=== PATIENT | female | born 1935 | race Caucasian/White ===

== ENCOUNTER 2017-02-17 15:15 | Emergency (ER) | payer OTHER ==
[~2017-02-17] VITALS: Ht 144.8 cm; Wt 63.6 kg
[~2017-02-17 15:15] MED LIST: AMLODIPINE PO; ASPIR-LOW81 MG PO; BENAZEPRIL HCL20 MG PO; CELEXA20 MG PO; CIPRO500 MG PO; CITALOPRAM HBR20 MG PO; COZAAR100 MG PO; DIABETA5 MG PO; GLIMEPIRIDE4 MG PO; IRON325 MG PO; JANUVIA100 MG PO; Januvia PO; LEVOTHROID25 MCG PO; LEVOTHYROXINE25 MCG PO; LO-DOSE ASPIRIN81 M1 PO; LOTENSIN20 MG PO; Norvasc PO; PERCOCET 5/31 TABLET PO; PRAVACHOL80 MG PO; PRAVASTATIN SOD80 MG PO; SEE COMMENT; SLOW RELEASE I160 MG PO; Trusopt 2% Ophth Sol BOTH EYES; VITAMIN D22000 UNIT PO; VITAMIN D5000 UNIT PO; Vitamin D PO; WELLBUTRIN SR100 MG PO; WELLBUTRIN100 MG PO; Wellbutrin SR PO; ZOFRAN4 MG PO
[2017-02-17 15:38] LABS: POINT-OF-CARE METER ID UU13113778
[2017-02-17 16:55] LABS: ADD MIUA? NO; BILIRUBIN NEGATIVE; BLOOD NEGATIVE; COLOR STRAW ((YELLOW)); GLUCOSE (STRIP) NEGATIVE; KETONES NEGATIVE; LEUKOCYTES NEGATIVE; NITRITE NEGATIVE; PROTEIN (STRIP) NEGATIVE; SPECIFIC GRAVITY 1.005 (1.000-1.030); UCUL ADDED? NO; UROBILINOGEN 0.2 MG/DL (0.2-1.0)
[2017-02-17 16:59] LABS: EOSINOPHIL (%) 1.4 % (0-5); EOSINOPHIL COUNT 0.1 K/uL (0-0.3); HEMATOCRIT 36.8 % (36.0-46.0); IMMATURE GRANULOCYTE (%) 0.8 % (0.0-0.7); IMMATURE GRANULOCYTE COUNT 0.1 K/uL; INSTRUMENT ABS NEUTROPHIL CT 6.5 K/uL; LYMPHOCYTE COUNT 1.7 K/uL (1.0-2.8); MCH 30.2 PG (29.0-34.0); MCHC 32.6 G/DL (30.0-36.0); MCV 92.5 FL (83-99); MEAN PLAT.VOLUME 9.5 uM^3 (9.5-12.4); MONOCYTE (%) 7.7 % (3-12); MONOCYTE COUNT 0.7 K/uL (0-0.8); NEUTROPHIL (%) 71.4 % (45-76); NEUTROPHIL COUNT 6.5 K/uL (1.8-6.4); PLATELET COUNT 186 K/uL (156-360); RBC DIS.WIDTH-CV 13.1 % (11.8-14.6); RBC DIS.WIDTH-SD 44.3 % (39-53); RED BLOOD COUNT 3.98 M/uL (3.80-5.20); WHITE BLOOD COUNT 9.1 K/uL (4.1-10.2)
[2017-02-17 17:07] LABS: PROTHROMBIN TIME 10.7 SEC (10.2-12.9)
[2017-02-17 17:09] LABS: CHLORIDE 101 mEq/L (99-109); POTASSIUM 4.4 mEq/L (3.7-5.4); SODIUM 135 mEq/L (136-147)
[2017-02-17 17:10] LABS: PTT 24.4 SEC (25-37)
[2017-02-17 17:12] LABS: GLUCOSE 181 mg/dL (70-99)
[2017-02-17 17:13] LABS: ANION GAP 9 MEQ/L (2-14); TOTAL BILIRUBIN 0.6 mg/dL (0.0-1.0)
[2017-02-17 17:15] LABS: ALKALINE PHOSPHATASE 56 IU/L (3-129); GFR ESTIMATE (CALCULATED) 46 mL/min/
[2017-02-17 17:16] LABS: UREA NITROGEN (BUN) 15 mg/dL (9-23)
[2017-02-17 17:19] LABS: LIPASE 51 U/L (1.0-51.0)
[2017-02-17 17:21] LABS: TROP-I INTERPRETATION NEGATIVE; TROPONIN-I 0.03 ng/mL (0.0-0.30)
[2017-02-17 18:37] VITALS: BP 165/80
== END 2017-02-17 18:39 | disposition home or self-care (01) ==
LOC: EME 15:15
PROVIDERS: Emergency Medicine
DX: I10 Essential (primary) hypertension (principal); R26.2 Difficulty in walking, not elsewhere classified; F03.90 Unspecified dementia, unspecified severity, without behavioral disturbance, psychotic disturbance, mood disturbance, and anxiety; R42 Dizziness and giddiness; M79.604 Pain in right leg; M79.605 Pain in left leg; E11.9 Type 2 diabetes mellitus without complications; Z79.84 Long term (current) use of oral hypoglycemic drugs; Z79.82 Long term (current) use of aspirin; E78.5 Hyperlipidemia, unspecified
CPT/HCPCS: 70450; 71020; 80053; 81003; 82948; 83605; 83690; 84484; 85025; 85610; 85730; 99281; 99284

== ENCOUNTER 2017-07-05 10:15 | Observation (INO) | payer OTHER ==
[~2017-07-05] VITALS: Ht 144.8 cm; Wt 65.1 kg
[~2017-07-05 10:15] MED LIST changes: +PRAVASTATIN SOD40 MG PO; -PRAVASTATIN SOD80 MG PO
[2017-07-05 11:20] LABS: EOSINOPHIL (%) 0.4 % (0-5); HEMATOCRIT 36.3 % (36.0-46.0); IMMATURE GRANULOCYTE (%) 0.3 % (0.0-0.7); INSTRUMENT ABS NEUTROPHIL CT 7.4 K/uL; LYMPHOCYTE COUNT 1.3 K/uL (1.0-2.8); MCH 30.1 PG (29.0-34.0); MCHC 33.6 G/DL (30.0-36.0); MCV 89.6 FL (83-99); MEAN PLAT.VOLUME 9.3 uM^3 (9.5-12.4); MONOCYTE (%) 7.3 % (3-12); MONOCYTE COUNT 0.7 K/uL (0-0.8); NEUTROPHIL (%) 78.2 % (45-76); NEUTROPHIL COUNT 7.4 K/uL (1.8-6.4); PLATELET COUNT 188 K/uL (156-360); RBC DIS.WIDTH-CV 12.6 % (11.8-14.6); RBC DIS.WIDTH-SD 41.8 % (39-53); RED BLOOD COUNT 4.05 M/uL (3.80-5.20); WHITE BLOOD COUNT 9.5 K/uL (4.1-10.2)
[2017-07-05 11:29] LABS: PROTHROMBIN TIME 11.6 SEC (10.2-12.9)
[2017-07-05 11:39] LABS: CHLORIDE 95 mEq/L (99-109); POTASSIUM 4.7 mEq/L (3.7-5.4); SODIUM 126 mEq/L (136-147)
[2017-07-05 11:40] LABS: TROP-I INTERPRETATION NEGATIVE; TROPONIN-I < 0.01 ng/mL (0.0-0.30)
[2017-07-05 11:41] LABS: GLUCOSE 293 mg/dL (70-99)
[2017-07-05 11:42] LABS: ANION GAP 9 MEQ/L (2-14)
[2017-07-05 11:45] LABS: GFR ESTIMATE (CALCULATED) 46 mL/min/
[2017-07-05 11:46] LABS: UREA NITROGEN (BUN) 27 mg/dL (9-23)
[2017-07-05] MEDS ORDERED: GLIMEPIRIDE2 MG PO (13:48)
[2017-07-05] MEDS ORDERED: VITAMIN K100 MCG PO (13:49)
[2017-07-05] MEDS ORDERED: MEMANTINE HCL10 MG PO (13:49)
[2017-07-05] MEDS ORDERED: TRADJENTA5 MG PO (13:50)
[2017-07-05] MEDS ORDERED: DORZOLAMIDE HCL10 ML BOTH EYES (13:50)
[2017-07-05] MEDS ORDERED: LATANOPROST2.5 ML RIGHT EYE (13:50)
[2017-07-05] MEDS ORDERED: DONEPEZIL HCL10 MG PO (13:50)
[2017-07-05 16:54] VITALS: BP 118/56
[2017-07-05 18:12] LABS: POINT-OF-CARE METER ID UU13113700
[2017-07-05 19:15] VITALS: BP 106/51
[2017-07-05 21:42] LABS: POINT-OF-CARE METER ID UU13113700
[2017-07-05 23:47] VITALS: BP 144/58
[2017-07-06 03:47] VITALS: BP 171/73
[2017-07-06 05:46] LABS: ANION GAP 9 MEQ/L (2-14); CHLORIDE 103 MEQ/L (99-109); GFR ESTIMATE (CALCULATED) 46 mL/min/; POTASSIUM 4.3 MEQ/L (3.7-5.4); SAMPLE HEMOLYSIS CHECK 0; SAMPLE ICTERIC CHECK 0; SAMPLE LIPEMIA CHECK 0; UREA NITROGEN (BUN) 29 mg/dL (9-23)
[2017-07-06 05:49] LABS: GLUCOSE 123 mg/dL (70-99); SODIUM 136 MEQ/L (136-147)
[2017-07-06 09:09] LABS: POINT-OF-CARE METER ID UU13113831
[2017-07-06 10:01] VITALS: BP 140/67
== END 2017-07-06 12:02 | disposition home or self-care (01) ==
LOC: EME 10:15 → EDOF 13:17 → 5WEST 13:17 → EDOF 13:17 → ENRESERV 13:18 → EDOF 13:31 → ENRESERV 16:02 → 5WEST 16:47
PROVIDERS: Emergency Medicine; Internal Medicine
DX: E87.1 Hypo-osmolality and hyponatremia (principal); S22.41XA Multiple fractures of ribs, right side, initial encounter for closed fracture; W19.XXXA Unspecified fall, initial encounter; F03.90 Unspecified dementia, unspecified severity, without behavioral disturbance, psychotic disturbance, mood disturbance, and anxiety; E03.9 Hypothyroidism, unspecified; E11.9 Type 2 diabetes mellitus without complications; I10 Essential (primary) hypertension; Z95.0 Presence of cardiac pacemaker; Z66 Do not resuscitate; F32.9 Major depressive disorder, single episode, unspecified; Z79.82 Long term (current) use of aspirin; J45.909 Unspecified asthma, uncomplicated; E78.5 Hyperlipidemia, unspecified; H40.9 Unspecified glaucoma; F41.9 Anxiety disorder, unspecified; Z79.84 Long term (current) use of oral hypoglycemic drugs
CPT/HCPCS: 70450; 71100; 74177; 80048; 82948; 84484; 85025; 85610; 93005; 99281; 99285; G0378; G8978 GP CJ; G8979 GP CI; G8980 CJ; G8987 GO CI; G8988 GO CH; G8989 GO CI; J1650; J7030

== ENCOUNTER 2018-02-03 17:35 | Emergency (ER) | payer OTHER ==
[~2018-02-03] VITALS: Ht 157.5 cm; Wt 63.5 kg
[~2018-02-03 17:35] MED LIST changes: +DONEPEZIL HCL10 MG PO; +DORZOLAMIDE HCL10 ML BOTH EYES; +GLIMEPIRIDE2 MG PO; +LATANOPROST2.5 ML RIGHT EYE; +MEMANTINE HCL10 MG PO; +TRADJENTA5 MG PO; +VITAMIN K100 MCG PO
[2018-02-03 22:48] VITALS: BP 128/89
== END 2018-02-03 23:27 | disposition home or self-care (01) ==
LOC: EME 17:35
PROC: 0HQ0XZZ Repair Scalp Skin, External Approach (ICD-10-PCS; principal; 2018-02-03)
DX: S01.01XA Laceration without foreign body of scalp, initial encounter (principal); W01.0XXA Fall on same level from slipping, tripping and stumbling without subsequent striking against object, initial encounter; Y92.22 Religious institution as the place of occurrence of the external cause; E78.5 Hyperlipidemia, unspecified; E11.9 Type 2 diabetes mellitus without complications; I10 Essential (primary) hypertension; F03.90 Unspecified dementia, unspecified severity, without behavioral disturbance, psychotic disturbance, mood disturbance, and anxiety; F32.9 Major depressive disorder, single episode, unspecified; F41.9 Anxiety disorder, unspecified; H40.9 Unspecified glaucoma; Z79.82 Long term (current) use of aspirin
CPT/HCPCS: 70450; 72125; 93005; 99281; 99285